=== PATIENT | female | born 1990 | race Caucasian/White ===

== ENCOUNTER 2019-05-30 17:18 | Emergency (ER) | payer OTHER ==
[~2019-05-30] VITALS: Ht 165.1 cm; Wt 62.1 kg
== END 2019-05-30 20:12 | disposition home or self-care (01) ==
LOC: ER 17:18
DX: O26.892 Other specified pregnancy related conditions, second trimester (principal); K29.60 Other gastritis without bleeding; Z34.02 Encounter for supervision of normal first pregnancy, second trimester